=== PATIENT | male | born 1975 | race Caucasian/White ===

== ENCOUNTER 2017-05-19 14:29 | Inpatient (IN) | payer OTHER ==
[~2017-05-19] VITALS: Ht 185.4 cm; Wt 93.1 kg
--- NOTE | ~2017-05-19 | EXE ---
[facility] [place] [address] STRESS ECHOCARDIOGRAM Name: DEVON LEE Room #: 205-P ADM IN M.R.#: [id number] Admission: 05/19/17 Attend Phys: Kendall Gee, Discharge: Date of : 71 Date of Service: 05/20/17 0957 Report #: [id number] THIS REPORT FOR: //name// APPROVED REPORT Study performed: 05/20/2017 08:16:42 Exam: Stress Echocardiogram Indication: CAD s/p PCI Patient Location: Echo lab Stress Nurse: Sugar Worthy RN Room #: 205 Status: routine Ht: 6 ft 1 in HR: 73 bpm BP: 128/80 mmHg Medical History Medical History: CAD s/p stent, HTN, Hyperlipidemia Cardiac Risk Factors: HTN, Hyperlipidemia, FHX of CAD Previous Cardiac Procedures: PCI Exercise History: Physically active Procedure The patient underwent an Exercise Stress Test using the [place] Protocol. Blood pressure, heart rate, and EKG were monitored. An Echocardiogram was performed by park maintenance technician in four stages in quad fashion. At peak stress, four selected images were obtained and placed side by side with resting images for comparison. Stress Test Details Stress Test: Exercise stress testing was performed using a [place] protocol. HR Resting HR: 73 bpm Max Heart Rate (APMHR): 177 bpm Max HR Achieved: 169 bpm Target HR (85% APMHR): 150 bpm % of APMHR: 95 Recovery HR: 105 bpm HR response to stress: Normal HR response to stress BP Resting BP: 128/80 mmHg Max BP: 150/84 mmHg Recovery BP: 142/82 mmHg [facility] [place] [address] STRESS ECHOCARDIOGRAM Name: JESUSDEVON GARCIA Room #: 205-P [facility]#: [id number] Admission: 05/19/17 Attend Phys: Kendall Gee, Discharge: Date of : 71 Date of Service: 05/20/17 0957 Report #: [id number] Clinical Reason for Termination: Maximal effort Exercise duration: 13 min 15 sec Highest Stage Achieved: Stage 5: 5.0 mph at 18% grade. Exercise capacity: 17.2 METs Overall Exercise Capacity for Age: Excellent Pre-Stress Echo The resting Echocardiogram showed normal left ventricular contractility with an estimated Ejection Fraction of about >55%. Post-Stress Echo The stress Echocardiogram showed normal left ventricular contractility with an estimated Ejection Fraction of about >70%. Clinical Normal augmentation of myocardial wall segments using a 17 segment model. Conclusion Clinical Response: Non-ischemic Exercise Capacity: Superior Stress ECG Response: Non-ischemic Stress Echo Images: Non-ischemic Other Information Study Quality: Good <ELECTRONICALLY SIGNED> By: Mikael Chawla MD, FACC 05/20/17 0957 6 6 Mikael Chawla MD, FACC /INF
--- NOTE | ~2017-05-19 | EKG ---
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 : 1975 Requested By: Roverto Tam Order Number: [id number] MD: Yayo Alegria Measurements Intervals [place] Rate: 93 P: 65 [place]: 141 QRS: -19 QRSD: 110 T: -5 QT: 357 QTc: 445 Interpretive Statements Sinus rhythm Early R-wave progression ST elev, probable normal early repol pattern Compared to ECG 10/14/2012 15:37:49 No significant change was found Electronically Signed On 05-20-2017 9:47:55 CDT by Yayo Alegria [email or web address] <ELECTRONICALLY SIGNED> By: Yayo Alegria MD, [facility] 05/20/17 0947 1641 1641 Yayo Alegria MD, [facility] /EPI
--- NOTE | ~2017-05-19 | EKG ---
[address] [place] [address] ELECTROCARDIOGRAM REPORT Name: DEVON LEE Room #: 205-P ADM IN M.R.#: [id number] Admission: 05/19/17 Attend Phys: Kendall Gee DO Discharge: Date of : 71 Report #: [id number] THIS REPORT FOR: //name// [facility] Test Date: 2017-05-20 Test Time: 07:12:13 Pat Name: DEVON LEE Department: Room: 205 P Gender: M Space Engineer: LADONNA : 1975 Requested By: Mikael Chawla Order Number: [id number] MD: Yayo Alegria Measurements Intervals [place] Rate: 64 P: 49 CT: 147 QRS: -15 QRSD: 105 T: -4 QT: 416 QTc: 430 Interpretive Statements Sinus rhythm Borderline left axis deviation Probable anteroseptal infarct, age indeterminate Borderline T abnormalities, inferior leads Compared to ECG 10/14/2012 15:37:49 Septal Q waves are more prominent Electronically Signed On 05-20-2017 9:56:34 CDT by Yayo Alegria [email or web address] <ELECTRONICALLY SIGNED> By: Yayo Alegria MD, [facility] 05/20/17 0956 1 1 Yayo Alegria MD, [facility] /EPI
--- NOTE | ~2017-05-19 | EKG ---
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: JESUS : 1975 Requested By: Roverto Tam Order Number: [id number] MD: Yayo Alegria Measurements Intervals [place] Rate: 82 P: 41 [place]: 157 QRS: -20 QRSD: 103 T: -4 QT: 368 QTc: 430 Interpretive Statements Sinus rhythm Early repolarization Borderline T abnormalities, inferior leads Compared to ECG 10/14/2012 15:37:49 No significant change was found Electronically Signed On 05-20-2017 9:43:00 CDT by Yayo Alegria [email or web address] <ELECTRONICALLY SIGNED> By: Yayo Alegria MD, [facility] 05/20/17 0943 1438 1438 Yayo Alegria MD, [facility] /EPI
--- NOTE | ~2017-05-19 | HC ---
[facility] [place] [address] CONSULTATION Name: JESUSDEVON Room #: 205-P [facility] IN M.R.#: [id number] Admission: 05/19/17 Attend Phys: Kendall Gee DO Discharge: Date of : 71 Report #: [id number] THIS REPORT FOR: //name// CC: Kendall Gee NO PCP HISTORY OF PRESENT ILLNESS: The patient is a 41-year-old male who comes in to the emergency room with some shortness of breath, dizziness, bilateral hand numbness and some perioral numbness. It sounds like he may have been having a panic attack. He had 3 stents placed to his LAD at in March, so just 2 months ago. He has not had any symptoms and in fact he just gone skiing in [place] and had a stress test prior to that, that he states was normal. He has been compliant with his medications. He said he did libertarian fairly hard on Easter with a lot of beers and was somewhat hungover yesterday, went to I believe it was soccer practice with one of his children and then driving home, felt this sounds like more of a panic attack, although he has never had these in the past. His troponins are negative times 3. His laboratory work is otherwise unremarkable. BNP was 19. H and H was 15 and 43. MEDICATIONS: He has been compliant with Plavix, aspirin, Lipitor 20, lisinopril 5, clonazepam, and testosterone. PAST MEDICAL HISTORY: Positive for borderline hypertension, coronary artery disease, appendectomy, hypercholesterolemia, and the 3 cardiac stents placed in March of this year. SOCIAL HISTORY: He is , he does have children, he shares custody with. 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 Sounds like a frequent alcohol user and no tobacco. Some occasional marijuana. FAMILY HISTORY: Strongly positive, father had premature coronary artery disease infarct in his 40s or 50s he states. REVIEW OF SYSTEMS: Essentially negative except for stated above, occasional nocturia. PHYSICAL EXAMINATION: GENERAL: Pleasant, alert. He is in no distress. VITAL SIGNS: Blood pressure is 120/84, pulse is 90 and regular. HEENT: Eyes reveal xanthelasmas. Pharynx is clear. NECK: Shows preserved upstrokes without JVD or bruits. LUNGS: Clear. HEART: Regular rate and rhythm, S1, S2, without murmur or gallop. ABDOMEN: Soft. No HSM or abdominal bruit. EXTREMITIES: Reveal no edema. Distal pulses were intact. NEUROLOGIC: Nonfocal. SKIN: Warm and dry. There are some tattoos noted on the arm. [address] [address] CONSULTATION Name: DEVON LEE Room #: [address] [place] [address] IN M.R.#: [id number] Admission: 05/19/17 Attend Phys: Kendall eGe DO Discharge: Date of : 71 Report #: [id number] MUSCULOSKELETAL: No gross joint deformity. ASSESSMENT: 1. Chest pain, suspect possible panic attack. 2. Coronary artery disease with history of 3 stents to the left anterior descending in March 2017. No prior infarct. 3. Borderline hypertension. 4. Hypercholesterolemia. RECOMMENDATIONS AND PLAN: Enzymes are negative. EKG is unremarkable and unchanged. I suspect this is more of an anxiety/panic attack, possible some portion of an Easter hangover also playing a role here. We will proceed with stress echocardiographic exam this morning and expect discharge. I did stress the continuation of dual antiplatelet therapy and his other medications. By: 0756 0936 Mikael Chawla MD, FACC /nt
[~2017-05-19 14:29] MED LIST: DEPO-TESTO200 MG/1 M; KLONOPIN; ORACEA40 MG
[2017-05-19 14:35] VITALS: BP 127/87
[2017-05-19] MEDS ORDERED: PLAVIX 75 MG TA75 M1 PO (14:43)
[2017-05-19] MEDS ORDERED: ASPIR 8181 MG PO (14:44)
[2017-05-19] MEDS ORDERED: LIPITOR 20 MG T20 M1 PO (14:44)
[2017-05-19] MEDS ORDERED: CLONAZEPAM 0.50.5 M1 PO (14:44)
[2017-05-19] MEDS ORDERED: LISINOPRIL5 MG PO (14:44)
[2017-05-19 15:28] LABS: ABSOLUTE NEUTROPHILS 7.3 thou/uL (1.4-8.2); BASOPHILS 0.5 % (0.0-2.0); EOSINOPHILS 0.3 % (0.0-3.0); HEMATOCRIT 43.8 % (42.0-52.0); HEMOGLOBIN 15.6 gm/dL (14.0-18.0); LYMPHOCYTES 9.3 % (24.0-44.0); MCH 34.5 pg (26.0-34.0); MCHC 35.5 g/dL (28.0-37.0); MCV 97.4 fL (80.0-100.0); MONOCYTES 11.2 % (1.0-8.0); PLATELET COUNT 226 thou/uL (150-400); POLYS 78.7 % (36.0-66.0); RDW 13.2 % (10.5-14.5); WBC 9.3 thou/uL (4.0-11.0)
[2017-05-19 15:36] LABS: ANION GAP 11 mmol/L (7-16); BUN 14 mg/dL (7-18); CALCIUM 9.4 mg/dL (8.5-10.1); CHLORIDE 102 mmol/L (98-107); CO2 26 mmol/L (21-32); CREATININE 0.9 mg/dL (0.7-1.3); GLUCOSE 87 mg/dL (74-106); POTASSIUM 3.8 mmol/L (3.5-5.1); SODIUM 139 mmol/L (136-145)
[2017-05-19 15:44] LABS: ALBUMIN 3.9 g/dL (3.4-5.0); SGOT 60 U/L (15-37); SGPT 83 U/L (30-65); TOTAL BILIRUBIN 0.6 mg/dL (<0.1-1.0); TOTAL PROTEIN 7.3 g/dL (6.4-8.2); TROPONIN-I < 0.04 ng/mL (<0.06)
[2017-05-19 18:45] VITALS: BP 123/63
[2017-05-19 19:05] VITALS: BP 123/63
[2017-05-19 19:46] VITALS: BP 136/73
[2017-05-19 23:34] VITALS: BP 130/74
[2017-05-20 04:07] LABS: HEMATOCRIT 42.9 % (42.0-52.0); HEMOGLOBIN 15.2 gm/dL (14.0-18.0); MCH 34.7 pg (26.0-34.0); MCHC 35.5 g/dL (28.0-37.0); MCV 97.8 fL (80.0-100.0); PLATELET COUNT 211 thou/uL (150-400); RBC 4.38 mil/uL (4.50-6.00); RDW 13.2 % (10.5-14.5); WBC 4.7 thou/uL (4.0-11.0)
[2017-05-20 04:31] VITALS: BP 100/53
[2017-05-20 04:33] LABS: CALCIUM 8.7 mg/dL (8.5-10.1); CREATININE 0.9 mg/dL (0.7-1.3); POTASSIUM 3.4 mmol/L (3.5-5.1)
[2017-05-20 05:38] LABS: ABSOLUTE NEUTROPHILS 2.6 thou/uL (1.4-8.2); LARGE PLATELETS OCCASIONAL
[2017-05-20 08:02] VITALS: BP 107/55
[2017-05-20 10:29] VITALS: BP 107/55
[2017-05-20 11:15] VITALS: BP 117/79
[2017-05-20 14:09] VITALS: BP 107/55
== END 2017-05-20 15:00 | disposition home or self-care (01) | DRG 313 ==
LOC: ER 14:29 → EROBS 17:19 → 2N 17:19
PROVIDERS: Emergency Medicine; Family Medicine
DX: R07.89 Other chest pain (principal); I25.10 Atherosclerotic heart disease of native coronary artery without angina pectoris; F41.9 Anxiety disorder, unspecified; R42 Dizziness and giddiness; R03.0 Elevated blood-pressure reading, without diagnosis of hypertension; E78.00 Pure hypercholesterolemia, unspecified; Z79.82 Long term (current) use of aspirin; Z79.899 Other long term (current) drug therapy; Z88.8 Allergy status to other drugs, medicaments and biological substances; Z90.49 Acquired absence of other specified parts of digestive tract; Z95.5 Presence of coronary angioplasty implant and graft
CPT/HCPCS: 10081